=== PATIENT | male | born 1990 | race Caucasian/White ===

== ENCOUNTER 2017-06-14 15:38 | Emergency (ER) | payer BC, OTHER ==
[2017-06-14] MEDS: HYDROCODONE/APAP (10/325) TAB PO (16:07)
[2017-06-14] MEDS: KETOROLAC 30 MG INJ IM (16:08)
== END 2017-06-14 16:16 | disposition home or self-care (01) ==
LOC: FTE 15:38
DX: M54.41 Lumbago with sciatica, right side (principal)
CPT/HCPCS: 96372; 99284-25; J1885